=== PATIENT | female | born 1980 | race Caucasian/White ===

== ENCOUNTER 2017-04-11 13:11 | Emergency (ER) | payer BC ==
[~2017-04-11] VITALS: Ht 157.5 cm; Wt 75.3 kg
[~2017-04-11 13:11] MED LIST: BENTYL20 MG PO; CIPRO500 MG PO; FLAGYL500 MG PO; FLEXERIL10 MG PO; MOTRIN800 MG PO; ZOFRAN4 MG PO; no home
[2017-04-11 13:56] LABS: HEMATOCRIT 41.8 % (36.0-46.0); MCH 29.8 PG (29.0-34.0); MCV 90.3 FL (83-99); PLATELET COUNT 369 K/uL (156-360); RBC DIS.WIDTH-CV 13.1 % (11.8-14.6); RBC DIS.WIDTH-SD 43.1 % (39-53); RED BLOOD COUNT 4.63 M/uL (3.80-5.20); WHITE BLOOD COUNT 9.3 K/uL (4.1-10.2)
[2017-04-11 14:06] LABS: CHLORIDE 108 mEq/L (99-109); POTASSIUM 3.9 mEq/L (3.7-5.4); SODIUM 140 mEq/L (136-147)
[2017-04-11 14:08] LABS: GLUCOSE 88 mg/dL (70-99)
[2017-04-11 14:09] LABS: ANION GAP 10 MEQ/L (2-14)
[2017-04-11 14:11] LABS: GFR ESTIMATE (CALCULATED) > 59 mL/min/
[2017-04-11 14:12] LABS: UREA NITROGEN (BUN) 11 mg/dL (9-23)
[2017-04-11 14:14] LABS: ADD MIUA? YES; BILIRUBIN NEGATIVE; BLOOD LARGE; COLOR YELLOW ((YELLOW)); GLUCOSE (STRIP) NEGATIVE; KETONES NEGATIVE; LEUKOCYTES TRACE; NITRITE NEGATIVE; PROTEIN (STRIP) NEGATIVE; SPECIFIC GRAVITY 1.014 (1.000-1.030); UROBILINOGEN 0.2 MG/DL (0.2-1.0)
[2017-04-11 14:18] LABS: BACTERIA NONE SEEN /HPF; EPITHELIAL CELLS RARE /HPF; MUCUS TRACE /LPF; RED BLOOD CELLS 0-5 /HPF (0-5); UCUL ADDED? NO; WHITE BLOOD CELLS 0-5 /HPF (0-5)
[2017-04-11 14:45] LABS: TOTAL BILIRUBIN 0.5 mg/dL (0.0-1.0)
[2017-04-11 14:46] LABS: ALKALINE PHOSPHATASE 92 IU/L (3-129)
[2017-04-11 14:49] LABS: DIRECT BILIRUBIN 0.2 mg/dL (0.0-0.3)
[2017-04-11 14:50] LABS: LIPASE 11 U/L (1.0-51.0)
[2017-04-11 14:55] LABS: QUANTITATIVE HCG < 4.0 MIU/ML
[2017-04-11] MEDS ORDERED: ULTRAM50 MG PO (16:51)
[2017-04-11] MEDS ORDERED: ZOFRAN ODT4 MG PO (16:51)
[2017-04-11 17:09] VITALS: BP 142/88
== END 2017-04-11 17:10 | disposition home or self-care (01) ==
LOC: EME 13:11
DX: N20.0 Calculus of kidney (principal); R11.2 Nausea with vomiting, unspecified; Z87.442 Personal history of urinary calculi; F17.200 Nicotine dependence, unspecified, uncomplicated
CPT/HCPCS: 74176; 80048; 80076; 81003; 83690; 84702; 85027; 99281; 99284; J1885; J2405; J7030